=== PATIENT | female | born 1975 | race African-American/Black ===

== ENCOUNTER 2018-03-24 14:55 | Day surgery (SDC) | payer BC, OTHER ==
[2018-03-24] MEDS: LACTATED RINGER'S 1,000 ML IV (08:30)
[~2018-03-24 14:55] MED LIST: CEFAZOLIN 1 GM INJ; DESFLURANE 15 MIN; FENTAnyl 50 MCG/ML VIAL; MIDAZOLAM 1 MG/ML 2 ML INJ; ONDANSETRON 4 MG INJ; PROPOFOL 20 ML
[2018-03-24 15:27] LABS: ADD MAN DIFF? NO
[2018-03-24 15:32] LABS: BASOPHIL # 0.1 10^3/ul (0.0-0.1); BASOPHILS % 0.8 % (0.0-2.0); EOSINOPHILS # 0.2 10^3/ul (0.0-0.5); EOSINOPHILS % 3.4 % (0.0-7.0); HEMATOCRIT 34.9 % (37.0-47.0); HEMOGLOBIN 11.3 g/dl (12.0-16.0); LYMPHOCYTES # 2.4 10^3/ul (0.8-2.9); LYMPHOCYTES % 37.8 % (15.0-51.0); MEAN CORPUSCULAR HEMOGLOBIN 28.1 pg (29.0-33.0); MEAN CORPUSCULAR HGB CONC 32.4 g/dl (32.0-37.0); MEAN CORPUSCULAR VOLUME 86.8 fl (82.0-101.0); MEAN PLATELET VOLUME 9.7 fl (7.4-10.4); MONOCYTE # 0.5 10^3/ul (0.3-0.9); MONOCYTES % 8.5 % (0.0-11.0); NEUTROPHIL # 3.1 10^3/ul (1.6-7.5); NEUTROPHILS % 49.3 % (39.0-77.0); PLATELET COUNT 428 10^3/UL (140-415); RED BLOOD COUNT 4.02 10^6/ul (4.20-5.40); RED CELL DISTRIBUTION WIDTH 12.7 % (11.5-14.5)
[2018-03-24 15:32] LABS: WHITE BLOOD COUNT 6.2 10^3/ul (4.8-10.8)
[2018-03-24 15:50] LABS: ANION GAP 9 (5-13); BLOOD UREA NITROGEN 8 mg/dl (7-20); CALCIUM 9.5 mg/dl (8.4-10.2); CARBON DIOXIDE 27 mmol/L (21-31); CHLORIDE 100 mmol/L (97-110); Estimated GFR > 60 mL/min (>60); GLUCOSE 88 mg/dl (70-220); POTASSIUM 3.7 mmol/L (3.5-5.1); SODIUM 136 mmol/L (135-144)
[2018-03-24 15:58] LABS: PROTIME 13.3 Sec (11.9-14.9)
[2018-03-24 15:59] LABS: PARTIAL THROMBOPLASTIN TIME 30.8 Sec (23.0-35.0)
[2018-03-24] MEDS ORDERED: METOCLOPRAMIDE 10 MG INJ ×2 (17:38→20:45)
[2018-03-24] MEDS ORDERED: PROPOFOL 20 ML (17:38)
[2018-03-24] MEDS ORDERED: ONDANSETRON 4 MG INJ (17:38)
[2018-03-24] MEDS ORDERED: KETOROLAC 30 MG INJ (17:39)
[2018-03-24] MEDS ORDERED: OXYCODONE/ACETAMINOPHEN (5/325) TAB PO (18:00)
[2018-03-24] MEDS ORDERED: HYDROmorphONE 1 MG/5 ML IV SYRINGE IV ×2 (18:00)
[2018-03-24] MEDS ORDERED: DIPHENHYDRAMINE 50 MG INJ IV (18:00)
[2018-03-24] MEDS: ONDANSETRON 4 MG INJ IV (19:24)
[2018-03-24] MEDS: KETOROLAC 30 MG INJ IV (19:24)
[2018-03-24] MEDS: MEPERIDINE 25 MG INJ IV (19:24)
[2018-03-24] MEDS: HYDROmorphONE 1 MG/5 ML IV SYRINGE IV (19:25)
[2018-03-24] MEDS: OXYCODONE/ACETAMINOPHEN (5/325) TAB PO (20:30)
[2018-03-24] MEDS: METOCLOPRAMIDE 10 MG INJ IV (20:46)
== END 2018-03-24 21:03 | disposition home or self-care (01) ==
LOC: SDS 14:55
DX: N92.1 Excessive and frequent menstruation with irregular cycle (principal); D25.9 Leiomyoma of uterus, unspecified
CPT/HCPCS: 58563; 80048; 85025; 85610; 85730